=== PATIENT | male | born 1985 | race African-American/Black ===

== ENCOUNTER 2019-07-10 04:55 | Emergency (ER) | payer MEDICAID ==
[~2019-07-10] VITALS: Ht 182.9 cm; Wt 87.0 kg
[2019-07-10] MEDS ORDERED: OLANZAPINE 10 MG/VIAL IM ONE (06:30)
[2019-07-10] MEDS ORDERED: LORAZEPAM 2MG/ML CPJ IM ONE (06:30)
[2019-07-10] MEDS ORDERED: SODIUM CHLORIDE 0.9% 1,000 ML IV ONE ×2 (06:31→07:26)
[2019-07-10 06:53] LABS: BASOPHILS % 0.5 % (0.0-2.0); EOSINOPHILS % 0.1 % (0.0-5.0); HEMATOCRIT. 49.2 % (42.0-52.0); HEMOGLOBIN. 17.2 g/dL (14.0-18.0); LYMPHOCYTES % 14.4 % (20.0-50.0); MEAN CORPUSCULAR HEMOGLOBIN 31.3 pg (28.0-32.0); MEAN CORPUSCULAR VOLUME 89.7 fL (80.0-94.0); MEAN PLATELET VOLUME 7.1 fl (7.4-10.4); MONOCYTES % 4.2 % (2.0-8.0); NEUTROPHILS % 80.8 % (40.0-76.0); PLATELET 321 x1000/uL (130-400); RED BLOOD CELL COUNT 5.49 mill/uL (4.7-6.1); RED CELL DISTRIBUTION WIDTH 13.1 % (11.6-14.6)
[2019-07-10 07:00] LABS: CHLORIDE 103 mEq/L (98-107)
[2019-07-10 07:03] LABS: ETHANOL BLOOD < 10 mg/dL
[2019-07-10 07:31] LABS: CLARITY URINE CLEAR (CLEAR); COLOR URINE YELLOW (YELLOW); KETONES URINE 1+ (NEGATIVE); LEUKOCYTE ESTERASE URINE NEGATIVE (NEGATIVE); NITRITE URINE NEGATIVE (NEGATIVE); OCCULT BLOOD URINE NEGATIVE (NEGATIVE); PROTEIN URINE NEGATIVE (NEGATIVE); SPECIFIC GRAVITY URINE 1.022 (1.005-1.030)
[2019-07-10 07:49] LABS: *AMPHETAMINES SCREEN URINE PRESUMTIVE POSITIVE (NEGATIVE); *BARBITURATES SCREEN URINE NEGATIVE (NEGATIVE); *BENZODIAZEPINES SCREEN URINE PRESUMTIVE POSITIVE (NEGATIVE)
[2019-07-10 07:50] LABS: *COCAINE SCREEN URINE NEGATIVE (NEGATIVE); CANNABINOID URINE SCREEN NEGATIVE (NEGATIVE); METHADONE URINE SCREEN NEGATIVE (NEGATIVE); OPIATES URINE SCREEN NEGATIVE (NEGATIVE); PHENCYCLIDINE URINE SCREEN NEGATIVE (NEGATIVE)
[2019-07-10 09:31] LABS: CREATINE KINASE 599 IU/L (39-308)
[2019-07-10 09:33] LABS: CREATINE KINASE MB FRACTION 1.4 ng/mL (0.5-3.6)
[2019-07-10 13:30] VITALS: BP 115/76
== END 2019-07-10 13:57 | disposition home or self-care (01) ==
LOC: ER 04:55
DX: F15.129 Other stimulant abuse with intoxication, unspecified (principal); G92 Toxic encephalopathy; I10 Essential (primary) hypertension; R00.0 Tachycardia, unspecified; F20.9 Schizophrenia, unspecified; F31.9 Bipolar disorder, unspecified; J45.909 Unspecified asthma, uncomplicated; Z78.1 Physical restraint status
CPT/HCPCS: 36415; 71045; 80053; 80305; 80307; 80320; 80329; 81003; 82550; 82553; 82962; 84484; 85025; 93005; 96372; 99284; J2060; J3490; J7030; Z7610; G0480